=== PATIENT | female | born 1975 | race Caucasian/White ===

== ENCOUNTER → 2024-06-15 09:50 | Outpatient (BNVA) | payer OTHER, SELFPAY | PROVIDERS: Referring Provider Internal Medicine Nephrology; Visit Provider Internal Medicine Rheumatology | DX: M32.19 Other organ or system involvement in systemic lupus erythematosus (principal); M19.90 Unspecified osteoarthritis, unspecified site; Z79.899 Other long term (current) drug therapy; Z71.85 Encounter for immunization safety counseling; E03.9 Hypothyroidism, unspecified; R06.02 Shortness of breath; M32.9 Systemic lupus erythematosus, unspecified | CPT/HCPCS: 36415; 80076; 81001; 82306; 82565; 83520; 84156; 84439; 84443; 85025; 85651; 86140; 86160; 86480; 86704; 86803; 87340; 99205 ==

== ENCOUNTER 2024-06-21 10:03 | Outpatient (CLI) | payer OTHER, SELFPAY ==
--- NOTE | 2024-06-21 10:00 | CT_ITS ---
WS: [email or web address] CT chest wo con [id number] HISTORY: M32.9 - Systemic lupus erythematosus, unspecified TECHNIQUE: Axial imaging performed through the thorax. Coronal and sagittal reformats are submitted. All CT scans at [facility] use at least one of these dose optimization techniques: automated exposure control; mA and/or kV adjustment per patient size (includes targeted exams where dose is matched to clinical indication); or iterative reconstruction. CONTRAST: None DLP: 412.08 mGy.cm COMPARISON: None available. Lungs and central airway: Well-aerated lungs. No pulmonary mass or nodule. No consolidations or groundglass opacification or hemorrhage which can be associated with lupus. Pleura: Normal. No pleural effusion. Heart and pericardium: Normal size heart with no pericardial effusion. Mediastinum and denzel: No mediastinum or hilar adenopathy. Vessels: Normal size aortic and pulmonary artery. No coronary artery calcifications. Chest wall and lower neck: No soft tissue masses. Upper abdomen: LEFT adrenal adenoma 2.2 x 1.6 cm. Normal RIGHT adrenal gland. Prior gastric bypass. Osseous structures: No destructive process. CT/CT chest wo con [id number] IMPRESSION: 1. No pulmonary changes of systemic lupus identified. No opacifications or hem orrhage. 2. The lungs are clear. 3. No pleural effusions or pericardial effusion. 4. LEFT adrenal adenoma.
== END 2024-06-21 10:04 | disposition home or self-care (01) ==
LOC: RAD 10:06
PROVIDERS: Visit Provider Internal Medicine Rheumatology
DX: M32.9 Systemic lupus erythematosus, unspecified (principal); R06.02 Shortness of breath; D35.02 Benign neoplasm of left adrenal gland; Z98.890 Other specified postprocedural states
CPT/HCPCS: 71250

== ENCOUNTER → 2024-08-31 07:43 | Outpatient (BNVA) | payer OTHER, SELFPAY | PROVIDERS: Referring Provider Internal Medicine Nephrology; Visit Provider Psychiatry & Neurology Neurology | DX: G44.86 Cervicogenic headache (principal); M54.2 Cervicalgia; M54.81 Occipital neuralgia; G43.011 Migraine without aura, intractable, with status migrainosus; M62.838 Other muscle spasm; R20.2 Paresthesia of skin; R29.898 Other symptoms and signs involving the musculoskeletal system; Z79.899 Other long term (current) drug therapy; Z71.85 Encounter for immunization safety counseling; M19.90 Unspecified osteoarthritis, unspecified site | CPT/HCPCS: 36415; 80076; 82306; 82525; 82565; 82607; 82657; 82746; 83735; 83921; 84425; 84591; 85025; 85651; 86140; 99203; 99214 ==

== ENCOUNTER 2024-09-05 07:36 | Outpatient (CLI) | payer OTHER, SELFPAY ==
--- NOTE | 2024-09-05 08:00 | MR_ITS ---
WS: [email or web address] MRI BRAIN WITH AND WITHOUT CONTRAST, pituitary imaging. HISTORY: G43.E01 - Chronic migraine with aura, not intractable, 30 years of migraines. COMPARISON: None available. TECHNIQUE: Multiplanar imaging performed through the brain with MultiHance 20 ml's IV. High-resolution imaging through the pituitary gland pre and post contrast. No acute infarcts are seen. Tai-white matter differentiation is well preserved. There are a few small scattered T2 and FLAIR signal hyperintensities throughout the supratentorial brain. No large territory infarct. No hemorrhage. No susceptibility artifacts or prior lacunar infarcts. Ventricles and extra-axial spaces are normal. Clivus and pituitary gland are normal. Visualized posterior fossa and brainstem are also normal. Normal appearance of the pituitary gland. No signal abnormality or nodule within the pituitary gland. Infundibulum and optic chiasm are in normal position. Postcontrast images are negative for masses or vascular malformations. Dural venous sinuses are normal. Paranasal sinuses: Well aerated with no significant disease. Mastoid air cells: Normal. Calvarium and scalp: Normal. MR/MR head wo/w con [id number] IMPRESSION: 1. No acute infarct or enhancing masses. 2. Normal pituitary gland. 3. No significant atrophy. 4. Normal hippocampal formations. 5. Diffuse small scattered T2 and FLAIR signal hyperintensities. These are non specific and can be noted with small vessel disease, migraines, hypertension, d iabetes and smoking.
--- NOTE | 2024-09-05 08:45 | MR_ITS ---
WS: [email or web address] MRI CERVICAL SPINE with and without contrast HISTORY: M54.2 - Cervicalgia COMPARISON: None available. Technique: Multiplanar, multisequence noncontrast imaging of the cervical spine. Postcontrast imaging MultiHance 20 mL. Normal cervical alignment with no compression fracture or significant disc space narrowing. Signal within the cervical cord is normal. Visualized posterior fossa is unremarkable. Slight ectopia of the cerebellar tonsils. T1 hemangioma. Craniocervical junction, C1 and C2 relationship, odontoid process and soft tissues are normal. C2-C3: Normal. C3-C4: Small foraminal osteophytes. Minimal RIGHT foraminal narrowing. C4-C5: Mild osteophytic ridging and RIGHT foraminal stenosis. Mild facet arthritis. C5-C6: Mild annular disc bulging, osteophytic ridging and facet arthritis. Moderate size RIGHT foraminal disc osteophyte. Smaller central disc protrusion. Effacement of the ventral CSF. Moderate central and bilateral foraminal stenosis, RIGHT greater than LEFT. C6-C7: Mild osteophytic ridging and mild disc bulging. Effacement of the ventral CSF. Mild deformity of the ventral thecal sac. Mild central and bilateral foraminal stenosis. C7-T1: Mild annular disc bulging with osteophytic ridging and facet arthritis. Small central disc protrusion. Mild central and bilateral foraminal stenosis. Paravertebral soft tissues are normal. No discitis or osteomyelitis. No vertebral body or disc enhancement. No mass. MR/MR cervical spine wo/w [id number] IMPRESSION: 1. No high-grade central or foraminal stenosis. 2. C5-6: Moderate central and bilateral foraminal stenosis, RIGHT greater than LEFT due to disc, osteophyte and facet arthritis. Moderate size RIGHT foramina l disc osteophyte complex. 3. C6-7 and C7-T1: Mild central and bilateral foraminal stenosis. 4. C3-4 and C4-5: Mild RIGHT foraminal stenosis. 5. No discitis or osteomyelitis. No mass. 6. Normal signal within the cord.
[2024-09-05] MEDS: gadobenate dimeglumine 20 mL vial IV (09:00)
[2024-09-05 09:35] LABS: Microalbumin Total Volume 1900 mL; Total Volume Urine 1900 ml
[2024-09-05 09:55] LABS: Urine Creatinine 54 mg/dL (28-217)
[2024-09-05 09:58] LABS: Microalbumin 24 Hour Result 23 mg/24HR (0-30); Microalbumin Result 1.2 mg/dL
== END 2024-09-05 07:37 | disposition home or self-care (01) ==
PROVIDERS: Absent Provider Internal Medicine; Visit Provider Psychiatry & Neurology Neurology
DX: G43.E01 Chronic migraine with aura, not intractable, with status migrainosus (principal); M54.2 Cervicalgia; E27.9 Disorder of adrenal gland, unspecified; M48.02 Spinal stenosis, cervical region; M25.78 Osteophyte, vertebrae; M47.812 Spondylosis without myelopathy or radiculopathy, cervical region
CPT/HCPCS: 70553; 72156; 82043; 82384; 82530; 82570

== ENCOUNTER 2024-09-13 08:21 | Outpatient (CLI) | payer OTHER, SELFPAY ==
--- NOTE | 2024-09-13 09:15 | MR_ITS ---
WS: [email or web address] MRA CAROTID WITHOUT AND WITH GADOLINIUM ENHANCEMENT TECHNIQUE: Axial 2-D TOF and gadolinium bolus images obtained with axial images and axial, sagittal, and coronal 2-D reformatted images. CLINICAL INFORMATION: G43.E01 - Chronic migraine with aura, not intractable, wi... COMPARISON: None. FINDINGS: RIGHT: RIGHT common carotid artery is patent. No significant RIGHT ICA stenosis. RIGHT ICA is patent to the skull base. LEFT: LEFT common carotid artery is patent. No significant LEFT ICA stenosis. LEFT ICA is patent to the skull base. RIGHT dominant vertebral artery. Smaller but patent LEFT vertebral artery. Proximal basilar artery is patent. Proximal subclavian arteries are patent. 1 to MR/MR angio neck w con* [id number] IMPRESSION: Normal neck MRA.
[2024-09-13 09:34] LABS: Alanine Aminotransferase 11 U/L (0-33); Albumin Level 4.1 g/dL (3.5-5.2); Alkaline Phosphatase 81 U/L (35-105); Anion Gap 15.1 (5-19); Aspartate Amino Transferase 16 U/L (0-32); Blood Urea Nitrogen 10 mg/dL (6-20); Calcium 9.3 mg/dL (8.5-10.5); Carbon Dioxide 24 mmol/L (22-29); Chloride 103 mmol/L (98-107); Creatinine Clr Calc Pharmacy 133.2841; Globulin 3.3 g/dL (1.3-4.6); Glomerular Filtration Rate 105.4 mL/min (90-130); Glucose 90 mg/dL (65-115); Osmolality Calculated 285 mOsm/kg (285-295); Potassium 4.1 mmol/L (3.5-5.1); Sodium 138 mmol/L (136-145); Total Bilirubin 0.4 mg/dL (0.15-1.2); Total Protein 7.4 g/dL (6.6-8.7)
[2024-09-13] MEDS: gadobenate dimeglumine 20 mL vial IV (09:53)
--- NOTE | 2024-09-13 10:00 | MR_ITS ---
WS: [email or web address] MRA HEAD TECHNIQUE: Axial 3-D TOF images obtained with axial images and axial, sagittal, and coronal 2-D reformatted images. CLINICAL INFORMATION: G43.E01 - Chronic migraine with aura, not intractable, wi... COMPARISON: None. FINDINGS: Distal vertebrals are patent. Basilar artery is patent. Normal vascularity to the GROUTMAN territory bilaterally. Both ICAs are patent at the skull base. Normal vascularity to the RULA and MCA territories bilaterally. No evidence of proximal flow-limiting stenosis. No other suspicious findings. MR/MR angio head wo con [id number] IMPRESSION: Normal intracranial MRA
== END 2024-09-13 08:22 | disposition home or self-care (01) ==
PROVIDERS: Internal Medicine; Visit Provider Psychiatry & Neurology Neurology
DX: G43.E01 Chronic migraine with aura, not intractable, with status migrainosus (principal); E27.9 Disorder of adrenal gland, unspecified
CPT/HCPCS: 36415; 70544; 70548; 80053; 82088; 84244; A9577

== ENCOUNTER 2024-10-05 06:12 | Outpatient (CLI) | payer OTHER, SELFPAY ==
--- NOTE | 2024-10-05 06:30 | MR_ITS ---
WS: [email or web address] MRI ADRENAL GLANDS WITH AND WITHOUT CONTRAST. COMPARISON: Noncontrast chest CT 06/21/2024 Multiplanar, multisequence imaging is performed with and without contrast. MultiHance 20 mL. LEFT adrenal gland: Soft tissue mass associated with the LEFT adrenal gland measures 2.1 x 2.4 cm. There is complete loss of signal on the out of phase imaging consistent with an adenoma. There is mild enhancement as expected. RIGHT adrenal gland is normal. Lung bases are clear. Normal size heart. Liver and spleen are normal size. No evidence for hepatic steatosis. Negative gallbladder. No intrahepatic duct dilatation. The pancreas as visualized is normal. No renal mass or cyst. No ascites. No ascites or adenopathy. Aorta is normal caliber. MR/MR adrenals wo/w con [id number] IMPRESSION: 1. LEFT adrenal adenoma measures 2.1 x 2.4 cm. 2. Remaining MRI abdomen is negative.
[2024-10-05] MEDS: gadobenate dimeglumine 20 mL vial IV (07:00)
[2024-10-05 07:34] LABS: Hematocrit 39.8 % (36-47); Hemoglobin 12.90 g/dL (11.27-16.99); Mean Corpuscular HGB Conc 32.4 g/dL (30-55); Mean Corpuscular Hemoglobin 30.0 pg (27-33); Mean Corpuscular Volume 92.6 fl (85-98); Nucleated Red Blood Cells % 0 %; Platelet Count 365 10^3/cmm (157-399); Red Blood Count 4.30 10^6/uL (3.85-5.65); White Blood Count 6.21 10^3/uL (3.29-11.43)
[2024-10-05 07:58] LABS: Alanine Aminotransferase 11 U/L (0-33); Albumin Level 4.2 g/dL (3.5-5.2); Alkaline Phosphatase 83 U/L (35-105); Aspartate Amino Transferase 15 U/L (0-32); Globulin 3.3 g/dL (1.3-4.6); Total Protein 7.5 g/dL (6.6-8.7)
== END 2024-10-05 06:13 | disposition home or self-care (01) ==
PROVIDERS: Internal Medicine Rheumatology; Visit Provider Internal Medicine
DX: E27.9 Disorder of adrenal gland, unspecified (principal); G44.86 Cervicogenic headache; G43.011 Migraine without aura, intractable, with status migrainosus; M54.81 Occipital neuralgia; M62.838 Other muscle spasm; M54.2 Cervicalgia; R20.2 Paresthesia of skin; R29.898 Other symptoms and signs involving the musculoskeletal system; Z79.899 Other long term (current) drug therapy
CPT/HCPCS: 36415; 74183; 80076; 82542; 82565; 85025; 85651; 86140; A9577

== ENCOUNTER → 2025-01-22 09:56 | Outpatient (BNVA) | payer OTHER, SELFPAY | PROVIDERS: Visit Provider Internal Medicine Rheumatology | DX: M32.19 Other organ or system involvement in systemic lupus erythematosus (principal); M13.80 Other specified arthritis, unspecified site; Z79.899 Other long term (current) drug therapy; Z71.85 Encounter for immunization safety counseling; Z86.39 Personal history of other endocrine, nutritional and metabolic disease | CPT/HCPCS: 36415; 80076; 82565; 85025; 85651; 86140; 99214 ==